=== PATIENT | male | born 1975 | race African-American/Black ===

== ENCOUNTER 2017-12-09 21:20 | Observation (INO) | payer OTHER, SELFPAY ==
[2017-12-09 22:59] LABS: #Eosinphils 0.1 thou/uL (0.0-0.7); #Monocytes 0.6 thou/uL (0.11-0.59); #Neutrophils 3.2 thou/uL (1.40-6.50); %Basophils 0.8 % (0.0-1.0); %Eosinophils 1.1 % (0.0-10.0); %Lymphocytes 34.6 % (21.0-51.0); %Monocytes 9.4 % (0.0-10.0); %Neutrophils 54.1 % (42.0-75.0); Hemoglobin 14.6 g/dL (14.0-18.0); Mean Corpuscular HGB CONC 33.3 g/dL (32.0-36.0); Mean Corpuscular Hemoglobin 33.5 pg (27.0-31.0); Mean Platelet Volume 8.9 fL (7.4-10.4); Platelet Count 166 thou/uL (130-400); RBC Distribution Width 12.3 % (11.5-14.5); Red Blood Cell (RBC) Count 4.37 mill/uL (4.70-6.10); White Blood Cell (WBC) Count 5.9 thou/uL (4.8-10.8)
[2017-12-09 23:06] LABS: PTT 26.1 SEC (22.9-36.1); Prothrombin Time 12.9 SEC (12.0-14.7)
[2017-12-09 23:24] LABS: Acetaminophen Less than 6.0 mcg/mL (10.0-30.0); Alcohol Less than 10 mg/dL (Less than 10); CKMB 2.4 ng/mL (0-6.6); Salicylate Less than 8.0 mg/dL (15.0-30.0); Troponin I Less than 0.010 ng/mL (< 0.028)
--- NOTE | 2017-12-09 23:25 | CT ---
CT BRAIN WITHOUT CONTRAST: 12/09/17 HISTORY: Facial weakness, facial droop, slurred speech. FINDINGS: Comparison is made with exam of 08/04/15. No evidence of infarct hemorrhage, midline shift or abnormal extra-axial fluid collections are seen. The ventricular size is normal and the basilar cisterns patent. The bony calvarium is intact. The vis ualized paranasal sinuses and mastoid air cells are well aerated. There is an old fracture of the rig ht lamina papyracea. IMPRESSION: No CT evidence of acute intracranial process. POS: [facility]
[2017-12-09 23:43] LABS: ALT (SGPT) 17 U/L (8-55); AST (SGOT) 11 U/L (5-34); Albumin 3.9 g/dL (3.5-5.0); Alkaline Phosphatase 57 U/L (40-150); Anion Gap 11 mmol/L (10-20); BUN (Urea Nitrogen) 13 mg/dL (8.9-20.6); Bilirubin, Total 0.6 mg/dL (0.2-1.2); CK (CPK) 282 U/L (30-200); Calc. Creatinine Clearance 0 mL/min (70-130); Calcium 9.1 mg/dL (7.8-10.44); Carbon Dioxide 23 mmol/L (22-29); Chloride 109 mmol/L (98-107); Estimated GFR-MDRD 64; Globulin 2.5 g/dL (2.4-3.5); Glucose 180 mg/dL (70-105); Potassium 3.9 mmol/L (3.5-5.1); Protein, Total 6.4 g/dL (6.0-8.3); Sodium 139 mmol/L (136-145)
[2017-12-10] MEDS ORDERED: Aspirin 325 MG TAB ONE (00:16)
[2017-12-10 01:55] LABS: Bilirubin Negative (Negative); Blood, Urine Negative (Negative); Clarity CLEAR (Clear); Glucose, Urine (Dipstick) 250 mg/dL (Negative); Leukocyte Negative (Negative); Nitrite Negative (Negative); Protein, Urine (Dipstick) 30 mg/dL (Neg-Trace); Specific Gravity, Urine 1.033 (1.002-1.036)
[2017-12-10 01:58] LABS: Bacteria/HPF None Seen HPF (None Seen); Hyaline Casts/LPF 0-3 HYALINE CAST LPF (0-3 Hyaline); RBC/HPF 0-3 HPF (0-3); Squamous Epithelial None Seen HPF (0-3); WBC/HPF None Seen HPF (0-3)
[2017-12-10 02:06] LABS: Amphetamine Not Detected (NotDetected); Barbiturates Screen Not Detected (NotDetected); Benzodiazepine Screen Not Detected (NotDetected); Cocaine Metabolite Screen Not Detected (NotDetected); Medtox Control Line Valid? VALID (VALID); Medtox Reader # READER 4; Methadone Not Detected (NotDetected); Methamphetamine Not Detected (NotDetected); Opiate Screen Not Detected (NotDetected); Oxycodone Screen Not Detected (NotDetected); Phencyclidine (PCP) Detected (NotDetected); THC/Cannabinoid Screen Not Detected (NotDetected); Tricyclic Screen Not Detected (NotDetected)
[2017-12-10] MEDS ORDERED: Acetaminophen 325 MG TAB PO PRN (02:14)
[2017-12-10] MEDS ORDERED: Ondansetron HCl/PF 4 MG/2 ML Vial IVP PRN (02:14)
[2017-12-10 02:35] VITALS: BMI 31.8
[2017-12-10 04:31] LABS: #Basophils 0.1 thou/uL (0.0-0.2); #Eosinphils 0.1 thou/uL (0.0-0.7); #Lymphocytes 2.1 thou/uL (1.20-3.40); #Monocytes 0.5 thou/uL (0.11-0.59); #Neutrophils 2.9 thou/uL (1.40-6.50); %Basophils 1.2 % (0.0-1.0); %Eosinophils 1.5 % (0.0-10.0); %Lymphocytes 37.5 % (21.0-51.0); %Monocytes 8.7 % (0.0-10.0); %Neutrophils 51.1 % (42.0-75.0); Hemoglobin 14.7 g/dL (14.0-18.0); Mean Corpuscular HGB CONC 33.3 g/dL (32.0-36.0); Mean Corpuscular Hemoglobin 33.7 pg (27.0-31.0); Mean Platelet Volume 9.4 fL (7.4-10.4); Platelet Count 176 thou/uL (130-400); RBC Distribution Width 12.4 % (11.5-14.5); Red Blood Cell (RBC) Count 4.36 mill/uL (4.70-6.10); White Blood Cell (WBC) Count 5.6 thou/uL (4.8-10.8)
[2017-12-10 05:16] LABS: Anion Gap 12 mmol/L (10-20); BUN (Urea Nitrogen) 12 mg/dL (8.9-20.6); Calc. Creatinine Clearance 118 mL/min (70-130); Carbon Dioxide 22 mmol/L (22-29); Cardiac Risk 6.1 (Less than 4.5); Chloride 105 mmol/L (98-107); Cholesterol 238 mg/dl (< 200 Desired); Estimated GFR-MDRD 82; Glucose 237 mg/dL (70-105); HDL Cholesterol 39 mg/dL (>60 Neg Risk); Potassium 4.1 mmol/L (3.5-5.1); Sodium 135 mmol/L (136-145); Triglycerides 402 mg/dL (Less than 150)
[2017-12-10] MEDS ORDERED: Dextrose 50% Abboject 50 ML SYRINGE SLOW IVP PRN ×2 (08:09→12:26)
[2017-12-10] MEDS ORDERED: Dextrose 5% in Water 1,000 ML IV PRN ×2 (08:09→12:26)
[2017-12-10] MEDS ORDERED: Aspirin 325 mg Enteric Coated Tablet PO SCH (09:00)
[2017-12-10] MEDS ORDERED: Elviteg/Cob/Emtri/Tenof Alafen [Genvoya Tablet] PO SCH (09:00)
[2017-12-10] MEDS ORDERED: Enoxaparin Sodium 40 MG/0.4 ML SYRINGE SC SCH (09:00)
--- NOTE | 2017-12-10 09:27 | ULT ---
CAROTID DUPLEX SONOGRAM: History: CVA. FINDINGS: Right: No significant plaque. Color and spectral doppler evaluation, peak systolic velocity of 100 cm/sec an d IC to CC ratio of 0.8 suggests no hemodynamically significant stenosis within the extracranial righ t ICA. Antegrade flow within the vertebral artery. IMPRESSION: No significant plaque. Left: Color and spectral doppler evaluation, peak systolic velocity of 78 cm/sec and IC to CC ratio of 0.5 suggests no hemodynamically significant stenosis within the extracranial left ICA. Antegrade flow wit hin the vertebral artery. IMPRESSION: No significant plaque. No sonographic evidence of significant extracranial ICA stenosis. POS: [facility]
[2017-12-10] MEDS: Gabapentin 300 MG CAP PO SCH ×2 (09:53→16:56)
--- NOTE | 2017-12-10 10:01 | MRI ---
MRI BRAIN WITHOUT CONTRAST: Comparison: None. History: Weakness, facial drooping and slurred speech. Comparison: CT brain, 12-09-17 Technique: Multiplanar, multisequence MRI images were obtained of the brain without contrast. FINDINGS: This exam is limited secondary to motion artifact. No signal abnormality is seen on any of the obtain ed sequences. No restricted diffusion is seen to suggest an acute infarction. There is no evidence of hydrocephalus, intracranial hemorrhage, or extraaxial fluid collection. The e xpected flow voids are present. The corpus callosum, pituitary and craniocervical junction are unrema rkable. The calvarium and overlying soft tissues are unremarkable. IMPRESSION: NO evidence of acute intracranial abnormalities. POS: [facility]
--- NOTE | 2017-12-10 11:02 | HP ---
PRIMARY CARE PHYSICIAN: Dr. Dale CHIEF COMPLAINT: Tingling in his head as well as right facial droop, slurred speech and off balance . HISTORY OF PRESENT ILLNESS: Mr. Mercedes is a pleasant 42-year-old gentleman that has a history of valdez betes mellitus, hypertension and he is also HIV positive. He says that in the last 3 days he has bee n feeling some tingling in his head and he feels like it started with some knots popping up in his he ad and then he says he felt like he was having a facial droop on the right side, his right side was d roopy and his lip was feeling swollen and heavy. He also said he was having trouble finding his word s. He also felt off balance and was walking "sideways". He says these symptoms would come and go an d it seemed to be coming more frequently. He also noticed that he would have trouble finding the wor ds that he wanted to say and this is the reason he came to the ER. In further questioning, he also s ays he notes a knot in the center of his chest which started several years ago. It was very small an d then got progressively larger. He says sometimes it does something "to his heart" and it will actu ally hurt and he will have to lift his arms up and then it feels like there is some relief. He also notes a type of a swelling on the left side of his neck as well. He denies feeling any weakness in h is extremities. He denies any fevers, night sweats or weight loss. No other general complaints. REVIEW OF SYSTEMS: All systems were reviewed and are negative except for that mentioned in the histo ry of present illness. PAST MEDICAL HISTORY: Diabetes mellitus, hyperlipidemia, hypertension, and HIV positive. He says hi s last viral load was in August and it was undetectable. PAST SURGICAL HISTORY: Negative. ALLERGIES: No known drug allergies. SOCIAL HISTORY: He works at [employer]. He is . He smokes both cigarettes and he says he smoke s PCP also. He says he last smoked PCP about 4 days ago. FAMILY HISTORY: Significant for diabetes mellitus in his father and a stroke in his father. MEDICATIONS: Include glipizide 10 mg twice a day, metformin 1000 mg twice a day, gabapentin 600 mg t wice daily and Genvoya daily. PHYSICAL EXAMINATION: GENERAL: He is alert and oriented. He appears to be in no acute distress. He is well-developed and well-nourished. VITAL SIGNS: Blood pressure was 132/98, heart rate 78, respiratory rate of 18, temperature is 98.2. HEENT: Pupils are equal, round, and reactive. Extraocular muscles are intact. Sclerae are anicteri c. Throat: There is no erythema, no exudates. Uvula is midline. NECK: There is no sergey adenopathy, but it did feel like there was some fullness on the left side of the neck, almost in a linear type area. There were no bruits. LUNGS: Clear to auscultation. There was no wheezing, no rales, no rhonchi. CARDIOVASCULAR: He had a normal S1, S2. I did not appreciate an S3 or S4. No murmurs, clicks, no r ubs. ABDOMEN: Soft, it is nontender, nondistended. Positive for bowel sounds. There is no rebound, no g uarding, no organomegaly. EXTREMITIES: There is no clubbing, cyanosis, no edema, no calf tenderness. There are no effusions i n the joints. He has got palpable dorsalis pedis pulses. NEUROLOGIC: His muscle strength is 5/5 in both his upper and lower extremities; however, it was slig htly weaker on the left than on the right and he had a slightly weaker dorsiflexion of the left leg. SKIN AND INTEGUMENT: No skin changes. No rash. However, on the chest wall in the center in the herminia rnal area there appeared to be a subcutaneous mass which was smooth and palpable, nontender, nonfluct uant. LABORATORY AND X-RAY: On his EKG it was sinus rhythm with voltage criteria for LVH, rate was 62. Th is is by my reading. He also had a CT scan which I reviewed, which did not show any intracranial abn ormalities that I could tell. His lab work INR was 1.0. White blood cell count 5.6, hemoglobin 14.7 , hematocrit is 44.1, platelet count is 176. Sodium 135, potassium 4.1, chloride is 105, CO2 is 22, BUN of 12, creatinine 1.18, glucose is 237, triglycerides were elevated at 402. Cholesterol was 238, LDL was unable to calculate, HDL was 39. His urine drug screen was positive for PCP. ASSESSMENT AND PLAN: This is a 42-year-old gentleman who presents to the emergency room with left fa cial droop and slurred speech, also off balance. He also complains of some odd chest pain which seem s to be related to positions with a possible feeling of a mass-like lesion causing this. 1. For the facial droop and slurred speech and difficult with word finding we will get an MRI of the brain, as well as bilateral carotid Dopplers, place him on aspirin therapy and also start him on a m edication for dyslipidemia. This likely represents a TIA given his risk factors. 2. Chest pain. This appears to be mechanical in that it is different in his arm positioning. We wi ll get a CT scan of his chest to rule out mediastinal mass potentially causing his symptoms. 3. Diabetes mellitus. We will continue glipizide. Hold the metformin and place him on a sliding sc antwan insulin. 4. Human immunodeficiency virus. Continue Genvoya and according to the patient, he is compliant wit h medications and last viral load was undetectable and he sees Dr. Luu for this. Therefore, unless there is anything unusual found on the CT scan. We will defer any treatment of human immunodeficien cy virus to the outpatient setting with Dr. Luu.
--- NOTE | 2017-12-10 11:42 | CT ---
CT CHEST WITH CONTRAST: Technique: Multiple axial tomograms were obtained through the chest with IV enhancement. Indication: Chest pain, question chest mass, cough. History of smoking. FINDINGS: The lungs are well aerated and are clear. There is no evidence of infiltrate or effusion. No evidence of mass or nodule. Mediastinum is unremarkable. No adenopathy. Thyroid unremarkable. Images through the upper abdomen are unremarkable. No axillary adenopathy. IMPRESSION: Unremarkable CT chest. POS: [facility]
--- NOTE | 2017-12-10 12:03 | CT ---
CT NECK WITH CONTRAST: Multiple axial tomograms are obtained through the neck with IV enhancement. INDICATION: Question left neck mass. The patient describes tightness in the left side of his neck. No focal pal pable mass. No marker is placed. FINDINGS: Parotid glands and submandibular glands appear symmetric and unremarkable. Thyroid unremarkable. Nasopharynx appears unremarkable. The oropharynx shows mild prominence of the palatine tonsils. Base of tongue unremarkable. There is soft tissue fullness in the oropharynx on the left at the region of the tonsillar glottic an gle near the base of the uvula producing asymmetry. A defined or enhancing mass is not seen; however , mucosal lesion should be excluded. Recommend ENT evaluation. The hypopharynx is unremarkable. Larynx unremarkable. [employer] space, parapharyngeal space, and retropharyngeal space unremarkable. Carotid space unrema rkable. Review of lymph nodes revealed numerous nonspecific subcentimeter level I submandibular nodes. The level II jugular digastric nodes are nonspecific measuring approximately 1 to 1.2 cm on each side . No significant level III or level IV lymph nodes. There are small nonspecific level IV lymph node s in the subclavicular region measuring up to 1.0 cm. No level V adenopathy. The paranasal sinuses and mastoids are well aerated. Cervical spine unremarkable. IMPRESSION: There is mucosal prominence and asymmetry in the oropharynx on the left at the base of the tongue. R ecommend ENT consultation and direct evaluation of this region. POS: [facility]
[2017-12-10] MEDS ORDERED: HumaLOG 300 UNITS/3 ML VIAL SC PRN (12:26)
[2017-12-10] MEDS: HumaLOG 300 UNITS/3 ML VIAL SC PRN ×2 (12:48→16:56)
[2017-12-10] MEDS ORDERED: ISOVUE-370 76%-LOCM 1 ML ONE (14:45)
[2017-12-10 16:07] VITALS: BP 142/70; TEMP 98.8
[2017-12-10] MEDS ORDERED: Atorvastatin Calcium 40 MG TAB PO SCH (21:00)
--- NOTE | 2017-12-10 22:11 | CON ---
DATE OF CONSULTATION: 12/10/2017 CONSULTING PHYSICIAN: Hospitalist Service. IMPRESSION: 1. Complex migraine. 2. Diabetes. 3. Hypertension. 4. Human immunodeficiency virus. PLAN: 1. Aspirin 81 mg per day. 2. Esgic one q.8h. as needed for headache. Mr. Mercedes is a 42-year-old man who came in with complaints of throbbing headache in association with feelings of left-sided numbness of the face and hand as well as slurred speech. The symptoms would wax and wane off and on for the last 3 days. They lasted nearly all day yesterday. He subsequently was brought in and had an MRI of the brain done, this did not reveal any evidence of acute ischemic c hange. His carotid ultrasound shows no significant problems. He reports at this point headache is p retty much gone. He feels like the neurologic symptoms have abated. He has not had a history of hea dache problems in the past. PAST MEDICAL HISTORY: As listed above. ALLERGIES: None. SOCIAL HISTORY: Unremarkable. FAMILY HISTORY: Noncontributory. REVIEW OF SYSTEMS: No complaint of light or sound sensitivity, positive for some intermittent blurre d vision. Negative for any nausea or vomiting. PHYSICAL EXAMINATION: GENERAL: He is a well-nourished middle-aged man in no distress. VITAL SIGNS: Stable. He is afebrile. HEENT: Pupils equal and reactive. Conjunctivae clear. Oropharynx clear. NECK: Supple. EXTREMITIES: No cyanosis, clubbing or edema. NEUROLOGIC: He is alert and cooperative. His speech is fluent and clear. His exam is nonfocal. SUMMARY: This gentleman had waxing and waning symptoms for several days. His workup has been unrema rkable, but given the throbbing headache in association with the neurologic symptoms, it strongly sug gests migraine. I would be happy to follow up with him as an outpatient.
--- NOTE | 2017-12-11 04:13 | DIS ---
DATE OF ADMISSION: 12/09/2017 DATE OF DISCHARGE: 12/10/2017 PRIMARY CARE PHYSICIAN: Jesus Dale MD DISCHARGE DISPOSITION: Home. PRIMARY DISCHARGE DIAGNOSES: 1. Transient ischemic attack. 2. Dyslipidemia. 3. Diabetes mellitus, type 2. 4. History of human immunodeficiency virus. DISCHARGE MEDICATIONS: Include aspirin 81 mg daily, Lipitor 20 mg at bedtime, Esgic one tablet q.4 h ours as needed for headache, metformin 1000 mg twice daily, glipizide 10 mg daily, gabapentin 600 mg twice daily, and Genvoya 1 tablet daily. PROCEDURES DONE DURING ADMISSION: The patient had a CT scan of the brain, which was negative for any acute intracranial process. The patient also had an MRI of the brain, which was negative for eviden ce of stroke or bleed. The patient had a carotid Doppler, was negative for any flow limiting disease . CT scan of the chest was also negative for any mass, lesions, or infiltrate. No adenopathy. The patient had a CT scan of the soft tissues of the neck, which showed mucosal prominence and asymmetry of the oropharynx at the base of the tongue, however, this was a nonspecific finding. CODE STATUS: FULL CODE. ALLERGIES: No known drug allergies. HOSPITAL COURSE: Mr. Mercedes is a pleasant 42-year-old gentleman who presented to the emergency room, complaining of slurred speech and facial numbness as well as feeling off balance. The patient prese nted to the emergency room and was placed in observation for possible transient ischemic attack. The patient does admit to using smoking PCP. The patient was evaluated with MRI, which was negative. C arotid Dopplers also negative and seen by Neurology who felt that his symptoms were likely migraine a s well. The patient complained of some pains in his chest and for this reason, a CT scan was done. This was negative for any mass, thus the patient was concerned that he had some type of mass, lesion pressing in his chest. The patient was counseled on the need to abstain from illicit substances as w ell as counseled on diet and exercise and is subsequently being discharged home.
== END 2017-12-10 19:15 | disposition home or self-care (01) ==
LOC: ERS 21:20 → 2SE 23:35 → INTOOBSV 23:35
PROVIDERS: ADMIT Hospitalist; ATTEND Hospitalist
DX: G45.9 Transient cerebral ischemic attack, unspecified (principal); E11.9 Type 2 diabetes mellitus without complications; I10 Essential (primary) hypertension; E78.5 Hyperlipidemia, unspecified; F17.210 Nicotine dependence, cigarettes, uncomplicated; G43.809 Other migraine, not intractable, without status migrainosus; Z79.84 Long term (current) use of oral hypoglycemic drugs; Z79.899 Other long term (current) drug therapy; Z21 Asymptomatic human immunodeficiency virus [HIV] infection status
CPT/HCPCS: 36415; 36416; 70450; 70491; 70551; 71260; 80048; 80053; 80061; 80306; 80307; 81003; 81015; 82550; 82553; 84484; 85025; 85610; 85730; 87086; 90471; 90686; 90732; 93005; 93880; 96372; 99406; G0008; G0009; G0378; J1650

== ENCOUNTER 2019-04-18 16:29 | Emergency (ER) | payer OTHER ==
[2019-04-18] MEDS ORDERED: HYDROcodone/Acetaminophen 10/325 mg Tablet ONE (17:02)
--- NOTE | 2019-04-18 17:37 | RAD ---
LEFT ELBOW FOUR VIEWS: History: Elbow injury. FINDINGS: There is an intraarticular radial head fracture not significantly displaced. No additional fractures. Minimal joint effusion noted. IMPRESSION: Intraarticular radial head fracture. POS: [facility]
--- NOTE | 2019-04-18 17:39 | RAD ---
LEFT FOREARM TWO VIEWS: History: Fall with injury to forearm. FINDINGS: An obliquely oriented intraarticular fracture of the radial head is noted. No other fractures. IMPRESSION: Intraarticular radial head fracture. POS: [facility]
== END 2019-04-18 18:13 | disposition home or self-care (01) ==
LOC: ERS 16:29
DX: S52.125A Nondisplaced fracture of head of left radius, initial encounter for closed fracture (principal); I10 Essential (primary) hypertension; E78.5 Hyperlipidemia, unspecified; E78.00 Pure hypercholesterolemia, unspecified; E11.9 Type 2 diabetes mellitus without complications; F17.210 Nicotine dependence, cigarettes, uncomplicated; V89.9XXA Person injured in unspecified vehicle accident, initial encounter
CPT/HCPCS: 29105

== ENCOUNTER 2020-01-07 16:42 | Emergency (ER) | payer OTHER ==
[2020-01-07 17:29] LABS: #Eosinphils 0.1 thou/uL (0.0-0.7); #Lymphocytes 1.2 thou/uL (1.20-3.40); #Monocytes 0.6 thou/uL (0.11-0.59); #Neutrophils 4.5 thou/uL (1.40-6.50); %Basophils 0.6 % (0.0-1.0); %Lymphocytes 18.6 % (21.0-51.0); %Neutrophils 70.8 % (42.0-75.0); Hemoglobin 16.5 g/dL (14.0-18.0); Mean Corpuscular HGB CONC 34.8 g/dL (32.0-36.0); Mean Corpuscular Volume 97.8 fL (78.0-98.0); Mean Platelet Volume 9.2 fL (7.4-10.4); Platelet Count 169 thou/uL (130-400); RBC Distribution Width 11.9 % (11.5-14.5); Red Blood Cell (RBC) Count 4.84 mill/uL (4.70-6.10); White Blood Cell (WBC) Count 6.3 thou/uL (4.8-10.8)
--- NOTE | 2020-01-07 17:31 | RAD ---
RADIOGRAPH CHEST 1 VIEW: DATE: 01/07/2020 HISTORY: 44-year-old male with dyspnea FINDINGS: There are no airspace densities, pulmonary edema, pneumothorax, or cardiomegaly. The lateral costophr enic angles are sharp. IMPRESSION: No acute cardiopulmonary findings.
[2020-01-07 17:49] LABS: ALT (SGPT) 22 U/L (8-55); AST (SGOT) 13 U/L (5-34); Alkaline Phosphatase 78 U/L (40-110); Anion Gap 14 mmol/L (10-20); BUN (Urea Nitrogen) 13 mg/dL (8.9-20.6); Bilirubin, Total 0.7 mg/dL (0.2-1.2); Calc. Creatinine Clearance 0 mL/min (70-130); Calcium 9.2 mg/dL (7.8-10.44); Carbon Dioxide 28 mmol/L (22-29); Chloride 98 mmol/L (98-107); Estimated GFR-MDRD 64; Globulin 3.4 g/dL (2.4-3.5); Glucose 362 mg/dL (70-105); Protein, Total 7.4 g/dL (6.0-8.3); Sodium 136 mmol/L (136-145)
[2020-01-07 18:45] LABS: SARS-CoV-2 NAA Rapid Test Not Detected (NotDetected)
[2020-01-07] MEDS ORDERED: Ketorolac Tromethamine 30 MG/ML VIAL ONE (19:10)
[2020-01-07] MEDS ORDERED: Benzonatate 100 MG CAP ONE (19:18)
== END 2020-01-07 20:35 | disposition home or self-care (01) ==
LOC: ERS 16:42
DX: R05 Cough (principal); R51.9 Headache, unspecified; Z20.828 Contact with and (suspected) exposure to other viral communicable diseases; E11.9 Type 2 diabetes mellitus without complications; E78.5 Hyperlipidemia, unspecified; I10 Essential (primary) hypertension; F17.210 Nicotine dependence, cigarettes, uncomplicated; Z79.899 Other long term (current) drug therapy
CPT/HCPCS: 36415; 71045; 80053; 83605; 83880; 84484; 85025; 85379; 87040; 93005; 96374; J1885; U0002

== ENCOUNTER 2020-03-20 13:48 | Emergency (ER) | payer OTHER ==
[2020-03-21 17:37] LABS: SARS-CoV-2 PCR by NAA Not Detected (NotDetected)
== END 2020-03-20 14:25 | disposition home or self-care (01) ==
LOC: ERS 13:48
DX: Z20.822 Contact with and (suspected) exposure to COVID-19 (principal); E11.9 Type 2 diabetes mellitus without complications; E78.5 Hyperlipidemia, unspecified; E78.00 Pure hypercholesterolemia, unspecified; I10 Essential (primary) hypertension; B20 Human immunodeficiency virus [HIV] disease; F17.210 Nicotine dependence, cigarettes, uncomplicated
CPT/HCPCS: 87635; 99283; U0003; U0005

== ENCOUNTER 2020-11-04 11:48 | Emergency (ER) | payer OTHER ==
[2020-11-04 19:54] LABS: SARS-CoV-2 PCR by NAA Not Detected (NotDetected)
== END 2020-11-04 13:30 | disposition home or self-care (01) ==
LOC: ERS 11:48
DX: J06.9 Acute upper respiratory infection, unspecified (principal); Z20.822 Contact with and (suspected) exposure to COVID-19; E11.9 Type 2 diabetes mellitus without complications; E78.5 Hyperlipidemia, unspecified; E78.00 Pure hypercholesterolemia, unspecified; I10 Essential (primary) hypertension; Z21 Asymptomatic human immunodeficiency virus [HIV] infection status; F17.210 Nicotine dependence, cigarettes, uncomplicated
CPT/HCPCS: 71045; U0003; U0005

== ENCOUNTER 2020-12-05 15:29 | Observation (INO) | payer OTHER ==
[2020-12-05 16:16] LABS: #Basophils 0.1 thou/uL (0.0-0.2); #Eosinphils 0.1 thou/uL (0.0-0.7); #Lymphocytes 1.9 thou/uL (1.20-3.40); #Monocytes 0.6 thou/uL (0.11-0.59); #Neutrophils 4.1 thou/uL (1.40-6.50); %Eosinophils 0.9 % (0.0-10.0); %Lymphocytes 28.4 % (21.0-51.0); %Monocytes 9.4 % (0.0-10.0); %Neutrophils 60.3 % (42.0-75.0); Hemoglobin 16.6 g/dL (14.0-18.0); Mean Corpuscular Hemoglobin 35.2 pg (27.0-31.0); Platelet Count 202 thou/uL (130-400); RBC Distribution Width 11.6 % (11.5-14.5); Red Blood Cell (RBC) Count 4.71 mill/uL (4.70-6.10); White Blood Cell (WBC) Count 6.8 thou/uL (4.8-10.8)
[2020-12-05 16:35] LABS: ALT (SGPT) 16 U/L (8-55); AST (SGOT) 11 U/L (5-34); Albumin 4.1 g/dL (3.5-5.0); Alkaline Phosphatase 79 U/L (40-110); Anion Gap 14 mmol/L (10-20); BUN (Urea Nitrogen) 9 mg/dL (8.9-20.6); Bilirubin, Total 0.5 mg/dL (0.2-1.2); Calc. Creatinine Clearance 0 mL/min (70-130); Calcium 9.4 mg/dL (7.8-10.44); Carbon Dioxide 23 mmol/L (22-29); Chloride 102 mmol/L (98-107); Globulin 3.2 g/dL (2.4-3.5); Glucose 224 mg/dL (70-105); Potassium 3.9 mmol/L (3.5-5.1); Protein, Total 7.3 g/dL (6.0-8.3); Sodium 135 mmol/L (136-145)
[2020-12-05] MEDS ORDERED: Nitroglycerin 0.4 MG TAB 1 EACH ONE ×3 (17:04→17:07)
[2020-12-05 17:39] LABS: Acetaminophen Less than 6.0 mcg/mL (10.0-30.0); Alcohol 38 mg/dL (Less than 10); Magnesium 1.9 mg/dL (1.6-2.6); Salicylate Less than 8.0 mg/dL (15.0-30.0)
[2020-12-05] MEDS ORDERED: Ondansetron ODT 4 MG TAB PO PRN (18:22)
[2020-12-05] MEDS ORDERED: Acetaminophen 325 MG TAB PO PRN (18:22)
[2020-12-05] MEDS ORDERED: Ondansetron PF 4 MG/2 ML Vial IVP PRN (18:22)
[2020-12-05] MEDS ORDERED: Acetaminophen 650 MG Suppository PR PRN (18:22)
[2020-12-05] MEDS ORDERED: Dextrose 50% Abboject 50 ML SYRINGE SLOW IVP PRN (18:29)
[2020-12-05] MEDS ORDERED: HumaLOG 300 UNITS/3 ML VIAL SC PRN (18:29)
[2020-12-05] MEDS ORDERED: Dextrose 5% in Water 1,000 ML IV PRN (18:29)
[2020-12-05] MEDS ORDERED: Nicotine 14 MG PATCH TD SCH (18:30)
[2020-12-05 20:11] VITALS: BMI 30.4
[2020-12-05] MEDS: Nitroglycerin 0.4 MG TAB (25 Tab Bottle) SL PRN (20:48)
[2020-12-05] MEDS ORDERED: Lorazepam 2 MG/ML VIAL IM PRN (21:44)
[2020-12-05] MEDS ORDERED: Electrolyte Replacement Protocol 1 EACH FS SCH (21:45)
[2020-12-05] MEDS ORDERED: Multivit, Therapeutic 1 TAB PO SCH (22:15)
[2020-12-05] MEDS ORDERED: Folic Acid 1 MG TAB PO SCH (22:15)
[2020-12-05 22:25] LABS: Hemoglobin A1c 10.5 % (4.0-6.0)
[2020-12-05] MEDS ORDERED: Thiamine 100 MG TAB PO SCH (22:45)
[2020-12-05 22:59] LABS: ALT (SGPT) 13 U/L (8-55); AST (SGOT) 10 U/L (5-34); Albumin 3.7 g/dL (3.5-5.0); Alkaline Phosphatase 72 U/L (40-110); Anion Gap 10 mmol/L (10-20); BUN (Urea Nitrogen) 10 mg/dL (8.9-20.6); Bilirubin, Direct 0.2 mg/dL (0.1-0.3); Bilirubin, Total 0.8 mg/dL (0.2-1.2); Calc. Creatinine Clearance 109 mL/min (70-130); Calcium 9.3 mg/dL (7.8-10.44); Carbon Dioxide 28 mmol/L (22-29); Chloride 102 mmol/L (98-107); Globulin 2.8 g/dL (2.4-3.5); Glucose 296 mg/dL (70-105); Phosphorus 3.2 mg/dL (2.3-4.7); Potassium 3.8 mmol/L (3.5-5.1); Protein, Total 6.5 g/dL (6.0-8.3); Sodium 136 mmol/L (136-145)
[2020-12-05 23:03] LABS: Troponin I Less than 0.010 ng/mL (< 0.028)
[2020-12-05] MEDS: Lorazepam 1 MG TAB PO SCH (23:11)
[2020-12-06 01:38] LABS: Troponin I Less than 0.010 ng/mL (< 0.028)
[2020-12-06 01:47] LABS: SARS-CoV-2 PCR by NAA Not Detected (NotDetected)
[2020-12-06 05:01] LABS: Band 1 % (5-11); Hemoglobin 15.8 g/dL (14.0-18.0); Lymphocytes 51 % (21-51); MDiff Complete? YES; Macrocytosis SLIGHT = 6-15 cells (100X) (0-5/hpf); Mean Corpuscular HGB CONC 33.9 g/dL (32.0-36.0); Mean Corpuscular Hemoglobin 34.5 pg (27.0-31.0); Mean Platelet Volume 9.1 fL (7.4-10.4); Monocytes 5 % (0-10); Neutrophil 43 % (42-75); Platelet Count 195 thou/uL (130-400); Platelet Morphology Comment Appears Adequate; RBC Distribution Width 11.8 % (11.5-14.5); Red Blood Cell (RBC) Count 4.58 mill/uL (4.70-6.10); White Blood Cell (WBC) Count 5.1 thou/uL (4.8-10.8)
[2020-12-06] MEDS: Lorazepam 1 MG TAB PO SCH ×2 (05:18→11:22)
[2020-12-06 05:23] LABS: Anion Gap 10 mmol/L (10-20); BUN (Urea Nitrogen) 12 mg/dL (8.9-20.6); Calc. Creatinine Clearance 121 mL/min (70-130); Carbon Dioxide 28 mmol/L (22-29); Cardiac Risk 6.7 (Less than 4.5); Chloride 102 mmol/L (98-107); Cholesterol 254 mg/dl (< 200 Desired); Glucose 266 mg/dL (70-105); HDL Cholesterol 38 mg/dL (>60 Neg Risk); LDL Cholesterol, Calculated 147 mg/dL; Potassium 4.2 mmol/L (3.5-5.1); Sodium 136 mmol/L (136-145); Triglycerides 346 mg/dL (Less than 150)
[2020-12-06] MEDS ORDERED: Folic Acid 1 MG TAB PO SCH (09:00)
[2020-12-06] MEDS ORDERED: Enoxaparin Sodium 40 MG/0.4 ML SYRINGE SC SCH (09:00)
[2020-12-06] MEDS ORDERED: (Elviteg/Cob/Emtri/Tenof Alafen [Genvoya Tablet] 1 EACH Tablet) PO SCH (09:00)
[2020-12-06] MEDS ORDERED: Thiamine 100 MG TAB PO SCH (09:00)
[2020-12-06] MEDS ORDERED: Atorvastatin Calcium 20 MG TAB PO SCH (09:00)
[2020-12-06] MEDS ORDERED: Multivit, Therapeutic 1 TAB PO SCH (09:00)
[2020-12-06] MEDS ORDERED: Aspirin Chewable 81 MG TAB PO SCH (09:00)
[2020-12-06] MEDS ORDERED: ADENOSINE 60 MG/20 ML VIAL ONE (09:39)
[2020-12-06 10:00] LABS: Bacteria/HPF None Seen HPF (None Seen); Bilirubin Negative (Negative); Blood, Urine Negative (Negative); Clarity Clear (Clear); Glucose, Urine (Dipstick) Greater than 1000 mg/dL (Negative); Ketone, Urine Negative (Negative); Leukocyte Negative Leu/uL (Negative); Nitrite Negative (Negative); Protein, Urine (Dipstick) 100 mg/dL (Neg-Trace); RBC/HPF 0-3 HPF (0-3); Squamous Epithelial None Seen HPF (0-3); Urobilinogen Normal mg/dL (Less than 2); WBC/HPF 0-3 HPF (0-3)
[2020-12-06 11:19] VITALS: BP 129/73; TEMP 97.9
[2020-12-06] MEDS: Nitroglycerin 0.4 MG TAB (25 Tab Bottle) SL PRN (11:23)
[2020-12-06] MEDS ORDERED: Gabapentin 300 MG CAP PO SCH (16:30)
[2020-12-06] MEDS ORDERED: metFORMIN 500 MG TAB PO SCH (17:00)
[2020-12-06] MEDS ORDERED: Lorazepam 1 MG TAB PO PRN (21:44)
[2020-12-07] MEDS ORDERED: Lorazepam 1 MG TAB PO PRN (21:44)
[2020-12-08] MEDS ORDERED: Lorazepam 0.5 MG TAB PO PRN (21:44)
[2020-12-08] MEDS ORDERED: Thiamine 100 MG TAB PO SCH (22:00)
== END 2020-12-06 18:08 | disposition home or self-care (01) ==
LOC: ERS 15:29 → 2NO 17:15 → UNDOADMOB 17:16 → 2NO 17:16
PROVIDERS: ADMIT Internal Medicine; ATTEND Internal Medicine
DX: R07.89 Other chest pain (principal); E11.9 Type 2 diabetes mellitus without complications; E78.1 Pure hyperglyceridemia; E78.00 Pure hypercholesterolemia, unspecified; I10 Essential (primary) hypertension; B20 Human immunodeficiency virus [HIV] disease; F17.210 Nicotine dependence, cigarettes, uncomplicated; E87.1 Hypo-osmolality and hyponatremia; F10.10 Alcohol abuse, uncomplicated; E66.9 Obesity, unspecified; Z68.30 Body mass index [BMI] 30.0-30.9, adult; Z79.82 Long term (current) use of aspirin; Z79.84 Long term (current) use of oral hypoglycemic drugs; Z79.899 Other long term (current) drug therapy; Y90.1 Blood alcohol level of 20-39 mg/100 ml; Z20.822 Contact with and (suspected) exposure to COVID-19
CPT/HCPCS: 36415; 36416; 71045; 78452; 80048; 80053; 80061; 80307; 81001; 82248; 83036; 83735; 84100; 84484; 85007; 85025; 85027; 85379; 93005; 93017; 96372; A9500; G0378; J0153; J1650; J1815; U0003; U0005

== ENCOUNTER 2021-02-21 13:04 | Emergency (ER) | payer OTHER ==
[2021-02-21] MEDS ORDERED: Aspirin Chewable 81 MG TAB ONE (13:29)
[2021-02-21 14:03] LABS: #Lymphocytes 1.5 thou/uL (1.20-3.40); #Monocytes 0.6 thou/uL (0.11-0.59); #Neutrophils 3.1 thou/uL (1.40-6.50); %Basophils 0.4 % (0.0-1.0); %Eosinophils 0.3 % (0.0-10.0); %Lymphocytes 28.6 % (21.0-51.0); %Monocytes 10.7 % (0.0-10.0); %Neutrophils 59.9 % (42.0-75.0); Hemoglobin 16.1 g/dL (14.0-18.0); Mean Corpuscular HGB CONC 34.5 g/dL (32.0-36.0); Mean Corpuscular Hemoglobin 34.7 pg (27.0-31.0); Mean Platelet Volume 9.2 fL (7.4-10.4); Platelet Count 164 thou/uL (130-400); RBC Distribution Width 11.8 % (11.5-14.5); Red Blood Cell (RBC) Count 4.62 mill/uL (4.70-6.10); White Blood Cell (WBC) Count 5.2 thou/uL (4.8-10.8)
[2021-02-21 14:26] LABS: ALT (SGPT) 25 U/L (8-55); AST (SGOT) 13 U/L (5-34); Albumin 3.9 g/dL (3.5-5.0); Alkaline Phosphatase 70 U/L (40-110); Anion Gap 15 mmol/L (10-20); BUN (Urea Nitrogen) 17 mg/dL (8.9-20.6); Bilirubin, Total 0.5 mg/dL (0.2-1.2); Calc. Creatinine Clearance 0 mL/min (70-130); Calcium 9.8 mg/dL (7.8-10.44); Carbon Dioxide 26 mmol/L (22-29); Chloride 102 mmol/L (98-107); Glucose 364 mg/dL (70-105); Potassium 4.7 mmol/L (3.5-5.1); Protein, Total 6.9 g/dL (6.0-8.3); Sodium 138 mmol/L (136-145)
== END 2021-02-21 15:03 | disposition home or self-care (01) ==
LOC: ERS 13:04
DX: R07.89 Other chest pain (principal); F19.10 Other psychoactive substance abuse, uncomplicated; E78.5 Hyperlipidemia, unspecified; E78.00 Pure hypercholesterolemia, unspecified; I10 Essential (primary) hypertension; E11.9 Type 2 diabetes mellitus without complications; F17.210 Nicotine dependence, cigarettes, uncomplicated; Z79.84 Long term (current) use of oral hypoglycemic drugs
CPT/HCPCS: 36415; 36416; 71045; 80053; 84484; 85025; 93005

== ENCOUNTER 2021-03-05 18:01 | Emergency (ER) | payer OTHER ==
[2021-03-05 20:47] LABS: Hemoglobin 16.4 g/dL (14.0-18.0); Mean Corpuscular HGB CONC 35.3 g/dL (32.0-36.0); Mean Corpuscular Hemoglobin 35.2 pg (27.0-31.0); Mean Corpuscular Volume 99.8 fL (78.0-98.0); Platelet Count 129 thou/uL (130-400); Red Blood Cell (RBC) Count 4.67 mill/uL (4.70-6.10); White Blood Cell (WBC) Count 2.9 thou/uL (4.8-10.8)
[2021-03-05] MEDS ORDERED: Ketorolac Tromethamine 30 MG/ML VIAL ONE (20:48)
[2021-03-05] MEDS ORDERED: Metoclopramide HCl 10 MG/2 ML VIAL ONE (20:48)
[2021-03-05] MEDS ORDERED: diphenhydrAMINE 50 MG/ML VIAL ONE (20:48)
[2021-03-05 21:10] LABS: Band 2 % (5-11); Lymphocytes 48 % (21-51); MDiff Complete? YES; Macrocytosis SLIGHT = 6-15 cells (100X) (0-5/hpf); Monocytes 21 % (0-10); Neutrophil 27 % (42-75); Ovalocytes SLIGHT = 2-5 cells (100X) (0-1/hpf); Platelet Morphology Comment Appears Decreased; Polychromasia SLIGHT = 2-3 cells (100X) (0-2/hpf); Reactive Lymphocytes 1 % (0-10)
[2021-03-05 21:39] LABS: Albumin 3.3 g/dL (3.5-5.0)
[2021-03-05 21:40] LABS: Chloride 102 mmol/L (98-107); Sodium 134 mmol/L (136-145)
[2021-03-05 21:41] LABS: Calcium 9.1 mg/dL (7.8-10.44)
[2021-03-05 21:42] LABS: Globulin 3.3 g/dL (2.4-3.5); Glucose 289 mg/dL (70-105); Protein, Total 6.6 g/dL (6.0-8.3)
[2021-03-05 21:43] LABS: Anion Gap 14 mmol/L (10-20); Carbon Dioxide 22 mmol/L (22-29)
[2021-03-05 21:44] LABS: Bilirubin, Total 0.3 mg/dL (0.2-1.2)
[2021-03-05 21:45] LABS: Alkaline Phosphatase 63 U/L (40-110); Calc. Creatinine Clearance 0 mL/min (70-130)
[2021-03-05 21:46] LABS: BUN (Urea Nitrogen) 11 mg/dL (8.9-20.6)
[2021-03-05 21:47] LABS: AST (SGOT) 18 U/L (5-34)
[2021-03-05 21:48] LABS: ALT (SGPT) 22 U/L (8-55)
[2021-03-06 13:52] LABS: SARS-CoV-2 PCR by NAA DETECTED (NotDetected)
== END 2021-03-05 22:36 | disposition home or self-care (01) ==
LOC: ERS 18:01
DX: U07.1 COVID-19 (principal); I10 Essential (primary) hypertension; E11.9 Type 2 diabetes mellitus without complications; E78.5 Hyperlipidemia, unspecified; E78.00 Pure hypercholesterolemia, unspecified; F17.210 Nicotine dependence, cigarettes, uncomplicated
CPT/HCPCS: 36415; 70450; 80053; 85025; 96374; 96375; J1200; J1885; J2765; U0003; U0005

== ENCOUNTER 2021-04-06 23:38 | Emergency (ER) | payer OTHER ==
[2021-04-07 00:18] LABS: #Lymphocytes 1.9 thou/uL (1.20-3.40); #Monocytes 0.6 thou/uL (0.11-0.59); #Neutrophils 4.4 thou/uL (1.40-6.50); %Basophils 0.7 % (0.0-1.0); %Eosinophils 0.6 % (0.0-10.0); %Lymphocytes 27.4 % (21.0-51.0); %Monocytes 8.2 % (0.0-10.0); Hemoglobin 16.5 g/dL (14.0-18.0); Mean Corpuscular HGB CONC 34.6 g/dL (32.0-36.0); Mean Corpuscular Hemoglobin 34.2 pg (27.0-31.0); Mean Corpuscular Volume 98.7 fL (78.0-98.0); Mean Platelet Volume 8.7 fL (7.4-10.4); Platelet Count 166 thou/uL (130-400); Red Blood Cell (RBC) Count 4.83 mill/uL (4.70-6.10)
[2021-04-07 00:39] LABS: ALT (SGPT) 21 U/L (8-55); AST (SGOT) 16 U/L (5-34); Albumin 4.4 g/dL (3.5-5.0); Alkaline Phosphatase 74 U/L (40-110); Anion Gap 18 mmol/L (10-20); BUN (Urea Nitrogen) 15 mg/dL (8.9-20.6); Bilirubin, Total 0.4 mg/dL (0.2-1.2); CK (CPK) 441 U/L (30-200); Calc. Creatinine Clearance 0 mL/min (70-130); Calcium 10.4 mg/dL (7.8-10.44); Carbon Dioxide 20 mmol/L (22-29); Chloride 101 mmol/L (98-107); Globulin 3.6 g/dL (2.4-3.5); Glucose 347 mg/dL (70-105); Potassium 3.9 mmol/L (3.5-5.1); Sodium 135 mmol/L (136-145)
[2021-04-07] MEDS ORDERED: Boostrix 0.5 ML (Tdap) VIAL ONE (00:47)
[2021-04-07 01:06] LABS: Actual Bicarbonate (HCO3v) 24 mEq/L (22-28); Analyzer IN Cardio ER; Base Excess -0.6 mEq/L (-2.0 to +3.0); Calcium, Ionized (venous) 1.14 mmol/L (1.16-1.32); Chloride (VBG) 101 mmol/L (98-106); Potassium (VBG) 4.02 mmol/L (3.70-5.30); Sodium 135.7 mmol/L (133-146); pH (venous) 7.41 (7.32-7.43)
== END 2021-04-07 01:43 | disposition home or self-care (01) ==
LOC: ERS 23:38
DX: N17.9 Acute kidney failure, unspecified (principal); E11.65 Type 2 diabetes mellitus with hyperglycemia; I10 Essential (primary) hypertension; B20 Human immunodeficiency virus [HIV] disease; E78.5 Hyperlipidemia, unspecified; F17.210 Nicotine dependence, cigarettes, uncomplicated
CPT/HCPCS: 36415; 80053; 82010; 82550; 82805; 85025; 90471; 90715; 93005

== ENCOUNTER 2023-02-13 07:30 | Emergency (ER) | payer OTHER ==
[2023-02-13 08:14] LABS: #Monocytes 0.6 thou/uL (0.11-0.59); #Neutrophils 3.5 thou/uL (1.40-6.50); %Basophils 0.4 % (0.0-1.0); %Eosinophils 0.2 % (0.0-10.0); %Lymphocytes 24.3 % (21.0-51.0); %Monocytes 10.5 % (0.0-10.0); %Neutrophils 64.2 % (42.0-75.0); Hematocrit 46.2 % (42.0-52.0); Hemoglobin 15.7 g/dL (14.0-18.0); Mean Corpuscular Hemoglobin 31.7 pg (27.0-31.0); Mean Corpuscular Volume 93.1 fl (78.0-98.0); Mean Platelet Volume 11.2 fL (7.4-10.4); Platelet Count 189 10x3/uL (130-400); RBC Distribution Width 13.2 % (11.5-14.5); Red Blood Cell (RBC) Count 4.96 mill/uL (4.70-6.10); White Blood Cell (WBC) Count 5.5 10x3/uL (4.8-10.8)
[2023-02-13 08:35] LABS: ALT (SGPT) 23 U/L (8-55); AST (SGOT) 15 U/L (5-34); Alkaline Phosphatase 70 U/L (40-110); Anion Gap 14 mmol/L (10-20); BUN (Urea Nitrogen) 9 mg/dL (8.9-20.6); Bilirubin, Total 0.8 mg/dL (0.2-1.2); Calc. Creatinine Clearance 0 mL/min (70-130); Calcium 9.2 mg/dL (7.8-10.44); Carbon Dioxide 22 mmol/L (22-29); Chloride 103 mmol/L (98-107); Estimated GFR 91; Globulin 3.4 g/dL (2.4-3.5); Glucose 251 mg/dL (70-105); Potassium 4.1 mmol/L (3.5-5.1); Protein, Total 7.4 g/dL (6.0-8.3); Sodium 135 mmol/L (136-145)
[2023-02-13 08:37] LABS: Troponin I Less than 0.010 ng/mL (< 0.028)
[2023-02-13 09:11] LABS: SARS-CoV-2 NAA Rapid Test Not Detected (NotDetected)
== END 2023-02-13 10:56 | disposition home or self-care (01) ==
LOC: ERS 07:30
DX: R05.9 Cough, unspecified (principal); R52 Pain, unspecified; B20 Human immunodeficiency virus [HIV] disease; E11.9 Type 2 diabetes mellitus without complications; E78.00 Pure hypercholesterolemia, unspecified; I10 Essential (primary) hypertension; Z79.84 Long term (current) use of oral hypoglycemic drugs; Z20.822 Contact with and (suspected) exposure to COVID-19
CPT/HCPCS: 36415; 71045; 80053; 83880; 84484; 85025; 93005; 96360